=== PATIENT | male | born 1960 | race Caucasian/White ===

== ENCOUNTER 2018-05-15 11:28 | Emergency (ER) | payer BC, OTHER ==
[~2018-05-15] VITALS: Ht 175.3 cm; Wt 74.8 kg
[~2018-05-15 11:28] MED LIST: LIPITOR 20 MG T20 M1 PO; ZOLOFT25 MG PO
[2018-05-15] MEDS ORDERED: PROPRANOLOL 20M20 M1 PO (11:39)
[2018-05-15] MEDS ORDERED: TRAZODONE HCL100 MG PO (11:39)
[2018-05-15] MEDS ORDERED: PAROXETINE ER25 MG PO (11:39)
[2018-05-15] MEDS ORDERED: PAROXETINE HC37.5 MG PO (11:40)
[2018-05-15] MEDS ORDERED: DIAZEPAM 10 MG10 M2 PO (11:41)
[2018-05-15 13:55] VITALS: BP 122/74
== END 2018-05-15 13:56 | disposition home or self-care (01) ==
LOC: ER 11:28
DX: G25.2 Other specified forms of tremor (principal); K21.9 Gastro-esophageal reflux disease without esophagitis; F41.9 Anxiety disorder, unspecified; Z88.0 Allergy status to penicillin; Z88.5 Allergy status to narcotic agent

== ENCOUNTER 2018-07-13 18:25 | Emergency (ER) | payer OTHER, BC ==
[~2018-07-13] VITALS: Ht 177.8 cm; Wt 72.6 kg
[~2018-07-13 18:25] MED LIST changes: +DIAZEPAM 10 MG10 M2 PO; +PAROXETINE ER25 MG PO; +PAROXETINE HC37.5 MG PO; +PROPRANOLOL 20M20 M1 PO; +TRAZODONE HCL100 MG PO
[2018-07-13 19:08] VITALS: BP 176/85
[2018-07-13] MEDS ORDERED: NORFLEX100 MG PO (19:22)
[2018-07-13] MEDS ORDERED: IBUPROFEN 600600 M1 PO (19:22)
[2018-07-13] MEDS ORDERED: TRAMADOL 50 MG50 MG PO (19:22)
== END 2018-07-13 19:31 | disposition home or self-care (01) ==
LOC: ER 18:25
DX: S29.012A Strain of muscle and tendon of back wall of thorax, initial encounter (principal); S39.012A Strain of muscle, fascia and tendon of lower back, initial encounter; K21.9 Gastro-esophageal reflux disease without esophagitis; F41.9 Anxiety disorder, unspecified; Z88.8 Allergy status to other drugs, medicaments and biological substances; Z88.0 Allergy status to penicillin; V89.2XXA Person injured in unspecified motor-vehicle accident, traffic, initial encounter; Y92.89 Other specified places as the place of occurrence of the external cause; Y93.89 Activity, other specified; Y99.8 Other external cause status

== ENCOUNTER 2019-08-26 09:18 | Day surgery (SDC) | payer BC, OTHER ==
[~2019-08-26] VITALS: Ht 175.3 cm; Wt 74.8 kg
[~2019-08-26 09:18] MED LIST changes: +ALPRAZOLAM 0.50.5 M1 PO; +ALPRAZOLAM2 MG PO; +CARBIDOPA-LEVO1 EA17 PO; +ESCITALOPRAM OX20 MG PO; +IBUPROFEN 600600 M1 PO; +NEUPRO1 EAC1 TOP; +NORFLEX100 MG PO; +TRAMADOL 50 MG50 MG PO
[2019-08-26 09:51] VITALS: BP 132/64
--- NOTE | 2019-08-26 12:30 | EKG ---
[address] [address] ELECTROCARDIOGRAM REPORT Name: RAMIN BLANK Room #: 150-6 [facility]#: [id number] Admission: 08/26/19 Attend Phys: Chao Rodriguez MD Discharge: Date of : 60 Report #: [id number] THIS REPORT FOR: //name// [facility] Test Date: 2019-08-26 Test Time: 09:40:38 Pat Name: RAMIN BLANK Department: Room: Gender: M [employer]: ilnnea : 1960 Requested By: Chao Rodriguez Order Number: [id number] MD: Billy Durán Measurements Intervals [place] Rate: 81 P: 72 MO: 169 QRS: -5 QRSD: 96 T: 43 QT: 337 QTc: 391 Interpretive Statements Sinus rhythm Borderline low voltage, extremity leads Baseline wander in lead(s) V2 Compared to ECG 08/12/2014 03:46:28 Sinus arrhythmia no longer present Myocardial infarct finding no longer present Electronically Signed On 08-26-2019 12:30:30 CARE REP by Billy Durán [email or web address] <ELECTRONICALLY SIGNED> By: Billy Durán MD 08/26/19 1230 9 Billy Durán MD /LAVON
--- NOTE | 2019-08-27 10:55 | O ---
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 PROCEDURE: Left knee arthroscopy with debridement of medial meniscus tear and debridement of chondromalacia. SURGEON: Chao Rodriguez MD INDICATIONS: This 59-year-old gentleman complains of progressive left knee pain and intermittent swelling. He has a history of old knee injury with previous knee arthroscopy twice in the past. This has been many years ago. Now, he is having progressive knee pain. Clinical findings and x-rays suggest gradual progression and posttraumatic degenerative arthritis. His clinical findings and symptoms are not so severe as to warrant total knee replacement at this time, but he is symptomatic enough to have problems and concerns. He also has a recent diagnosis of Parkinson's disease, which limits his ambulation. He has elected to go ahead with arthroscopic debridement in hopes this would at least alleviate some of his chronic progressive knee pain. DESCRIPTION OF PROCEDURE: The patient was taken to the operating room where he was placed under general anesthesia. Prophylactic intravenous antibiotics were administered. The left knee and leg were meticulously prepped and draped and a thigh tourniquet inflated to 300 mmHg. A lateral suprapatellar inflow cannula was placed. The arthroscope and probe were introduced. Various compartments were sequentially visualized and documented with arthroscopic photography. The medial compartment did reveal chronic irregular degenerative tearing in the medial meniscus extending from the anterior horn all the way back to the posterior horn. This involved the inner 1/2 to 2/3 of the meniscus. This area was debrided back to a more smooth, even and stable outer margin. There was some associated chondromalacia on both the medial femoral condyle and medial tibial plateau, although this was only moderate. There were no areas of severe cartilage damage and no exposed subchondral bone. There was quite a bit of loose cartilage debris in the posterior medial corner which was evacuated. The intercondylar notch reveals a somewhat narrow notch with some impingement on [facility] [address] [place] [address] OPERATIVE REPORT Name: RAMIN BLANK Room #: DEP SDC Kavita.#: [id number] Admission: 08/26/19 Attend Phys: Chao Rodriguez MD Discharge: 08/26/19 Date of : 60 Report #: [id number] the ACL, which demonstrated some chronic fraying and wear. There was some synovial hypertrophy, also consistent with chronic inflammation. This was debrided for better visualization and a limited notchplasty was performed to prevent further abrasion on the ACL. No other problems in the notch were noted. The lateral compartment reveals similar, but less severe cartilage and meniscus damage. There was some fraying along the inner border of the meniscus, but this involved only the inner one-third and extended from the mid lateral aspect up the anterior horn. This area was gently debrided. The mid and posterior aspect was in better shape and no debridement there was necessary. There was only minor fissuring and grooving on the lateral femoral condyle and the lateral tibial plateau. The patellofemoral articulation reveals some mild fissuring and grooving on both the patella and the trochlear region; however, this is mild and did not require significant debridement. There was some loose cartilage debris in the suprapatellar pouch, which was evacuated and mild synovial hypertrophy was also debrided. The entire knee was copiously irrigated. All excess fluid was evacuated from the knee. The knee was then injected with 80 mg of Depo-Medrol and 20 mL of 0.5% Marcaine with epinephrine. The puncture sites were closed with interrupted nylon suture. Sterile dressing was applied. The patient was awakened and returned to recovery room in good condition. <ELECTRONICALLY SIGNED> By: Chao Rodriguez MD 08/27/19 1055 [id number] Chao Rodriguez MD /nt
== END 2019-08-26 12:20 | disposition home or self-care (01) ==
LOC: OR 09:18 → TBA 11:28 → OR 11:33
DX: M25.562 Pain in left knee (principal); M23.232 Derangement of other medial meniscus due to old tear or injury, left knee; M23.262 Derangement of other lateral meniscus due to old tear or injury, left knee; M94.262 Chondromalacia, left knee; I10 Essential (primary) hypertension; G20 Parkinson's disease; E78.5 Hyperlipidemia, unspecified; F41.9 Anxiety disorder, unspecified; Z98.890 Other specified postprocedural states; Z79.899 Other long term (current) drug therapy; Z88.0 Allergy status to penicillin; Z88.8 Allergy status to other drugs, medicaments and biological substances
CPT/HCPCS: 50010; 50101; 50405; 51038; 54170; 56526; 57103; 57180; 62110; 62900; 70005